=== PATIENT | female | born 1990 | race Caucasian/White ===

== ENCOUNTER 2019-12-04 00:26 | Inpatient (IN) | payer MEDICAID, OTHER ==
[~2019-12-04] VITALS: Ht 154.9 cm; Wt 56.6 kg
--- NOTE | 2019-12-04 00:40 | NUR ---
C/O GLEASON AND GENERALIZED PAIN, PT REPORTS SHE HAD SPINAL TAP ON THURSDAY AT [facility].
--- NOTE | 2019-12-04 00:44 | NUR ---
ERP AT BEDSIDE FOR EVAL.
[2019-12-04] MEDS ORDERED: DIPHENHYDRAMINE 50 MG/ML, 1ML IVPush ONE ×2 (01:00→14:30)
[2019-12-04] MEDS ORDERED: DIAZEPAM 5 MG/ML, 2ML IVPush ONE (01:00)
[2019-12-04] MEDS ORDERED: PROCHLORPERAZINE 5 MG/ML, 2ML IVPush ONE (01:00)
[2019-12-04] MEDS ORDERED: SODIUM CHLORIDE 0.9% 1,000ML IV ONE (01:00)
[2019-12-04] MEDS ORDERED: KETOROLAC 30 MG/1 ML IVPush ONE (01:00)
[2019-12-04 01:07] LABS: BASOPHILS # (AUTO) 0.05 x10^3/uL (0-0.1); BASOPHILS % (AUTO) 0 % (0-1); EOSINOPHILS # (AUTO) 0.05 x10^3/uL (0-0.4); EOSINOPHILS % (AUTO) 1 % (1-7); HCT (SEDRATE) 35.4 % (34.6-47.8); LYMPHOCYTES # (AUTO) 3.87 x10^3/uL (1-3.4); LYMPHOCYTES % (AUTO) 36 % (22-44); MD NO; MEAN CORPUSCULAR HEMOGLOBIN 30.3 pg (27.0-34.8); MEAN CORPUSCULAR HGB CONC 33.5 g/dL (32.4-35.8); MEAN CORPUSCULAR VOLUME 90.4 fL (80-100); MEAN PLATELET VOLUME 7.2 fL (7.4-10.4); MONOCYTES # (AUTO) 0.83 x10^3/uL (0.2-0.8); MONOCYTES % (AUTO) 8 % (2-9); NEUTROPHILS # (AUTO) 6.08 x10^3/uL (1.8-6.8); NEUTROPHILS % (AUTO) 56 % (42-75); PLATELET COUNT 455 x10^3/uL (130-400); RED BLOOD COUNT 3.92 x10^6/uL (3.82-5.3); RED CELL DISTRIBUTION WIDTH 13.8 % (9.6-15.2)
[2019-12-04] MEDS ORDERED: PROCHLORPERAZINE 5 MG/ML, 2ML ONE (01:07)
[2019-12-04] MEDS ORDERED: DIPHENHYDRAMINE 50 MG/ML, 1ML ONE (01:07)
[2019-12-04] MEDS ORDERED: DIAZEPAM 5 MG/ML, 2ML ONE (01:07)
[2019-12-04] MEDS ORDERED: KETOROLAC 30 MG/1 ML ONE (01:08)
[2019-12-04 01:19] LABS: ALANINE AMINOTRANSFERASE 16 U/L (12-78); ALBUMIN 2.9 g/dL (3.4-5.0); ANION GAP 7 mmol/L (5-15); CALCIUM 8.7 mg/dL (8.5-10.1); CHLORIDE 105 mmol/L (98-107); CREATININE 0.79 mg/dL (0.55-1.02)
[2019-12-04 01:24] LABS: ALKALINE PHOSPHATASE 112 U/L (45-117); BILIRUBIN,TOTAL 0.1 mg/dL (0.2-1.0); TOTAL PROTEIN 7.4 g/dL (6.4-8.2)
[2019-12-04] MEDS ORDERED: TIZA2CAP PO (01:38)
[2019-12-04] MEDS ORDERED: BCP (01:38)
--- NOTE | 2019-12-04 01:49 | NUR ---
PT SLEEPING IN NO ACUTE DISTRESS, RESPIRATIONS EVEN AND UNLABORED. SISTER AT BEDSIDE.
--- NOTE | 2019-12-04 02:13 | NUR ---
PT UP TO BR WITH SISTER'S ASSISTANCE.
[2019-12-04 02:31] LABS: MICROSCOPIC NOT IND
[2019-12-04 02:38] LABS: CULTURE INDICATED? NO
--- NOTE | 2019-12-04 03:00 | NUR ---
PT RESTING IN GURNEY IN NO ACUTE DISTRESS, RESPIRATIONS EVEN AND UNLABORED. SISTER AT BEDSIDE.
--- NOTE | 2019-12-04 03:52 | NUR ---
PT IN MRI.
--- NOTE | 2019-12-04 04:27 | NUR ---
PT BACK FROM MRI, GOT UP TO BR. VSS. SISTER AT BEDSIDE.
[2019-12-04] MEDS ORDERED: HYDROmorphone 1 MG/ML, 1ML INJ ONE (04:42)
[2019-12-04] MEDS ORDERED: ONDANSETRON 2MG/ML, 2ML ONE (04:42)
[2019-12-04] MEDS ORDERED: HYDROmorphone 1 MG/ML, 1ML INJ IV ONE (05:00)
[2019-12-04] MEDS ORDERED: LIDODERM 5% PATCH TD ONE ×2 (05:00→05:10)
[2019-12-04] MEDS ORDERED: ONDANSETRON 2MG/ML, 2ML IVPush ONE (05:00)
--- NOTE | 2019-12-04 05:43 | NUR ---
SLEEPING IN NO ACUTE DISTRESS, EVEN AND UNLABORED RESPIRATIONS. VSS. SAFETY PRECAUTIONS IN PLACE.
--- NOTE | 2019-12-04 06:47 | NUR ---
report received from bronson bauer.
[2019-12-04] MEDS ORDERED: TRAZODONE 50MG TABLET PO PRN (07:00)
[2019-12-04] MEDS ORDERED: IBUPROFEN 600 MG TABLET PO PRN (07:00)
[2019-12-04] MEDS ORDERED: ONDANSETRON 2MG/ML, 2ML IVPush PRN (07:00)
[2019-12-04] MEDS ORDERED: ONDANSETRON ODT 4 MG PO PRN (07:00)
[2019-12-04] MEDS ORDERED: MORPHINE SULFATE 4 MG/ML, 1ML IVPush PRN (07:00)
[2019-12-04] MEDS ORDERED: hydrALAzine 20 MG/ML, 1ML IVPush PRN (07:00)
[2019-12-04] MEDS ORDERED: SUMATRIPTAN 6MG/0.5ML SQ ONE ×2 (07:00→07:08)
--- NOTE | 2019-12-04 07:11 | NUR ---
medication ordered from pharmacy.
--- NOTE | 2019-12-04 07:15 | NUR ---
CALLED FOR REPORT X 1. RN WAS BUSY WITH PT CARE.
[2019-12-04] MEDS: GABAPENTIN 100 MG CAPSULE PO SCH ×4 (07:34→21:36)
--- NOTE | 2019-12-04 07:37 | NUR ---
pt medicated per emar. pt tolerated well.
--- NOTE | 2019-12-04 07:58 | NUR ---
report given to tran bauer. all questions answered.
[2019-12-04 08:25] VITALS: BP 122/84
[2019-12-04] MEDS: KETOROLAC 30 MG/1 ML IV PRN ×2 (08:57→19:53)
[2019-12-04] MEDS: TIZANIDINE 4MG TABLET PO SCH ×2 (08:57→15:00)
[2019-12-04] MEDS ORDERED: ACETAMINOPHEN 325 MG TABLET PO SCH (09:00)
[2019-12-04 10:17] LABS: AMPHETAMINE SCREEN, URINE Negative (Negative); BARBITURATE SCREEN, URINE Negative (Negative); BENZODIAZEPINE SCREEN, URINE Positive (Negative); CANNABINOID SCREEN, URINE Positive (Negative); COCAINE SCREEN, URINE Negative (Negative); METHADONE SCREEN, URINE Negative (Negative); OPIATE SCREEN, URINE Positive (Negative)
[2019-12-04] MEDS: METHYL SALICYLATE/MENTHOL CRM 85GM TP SCH ×3 (11:00→21:00)
[2019-12-04] MEDS: ASA/APAP/ CAFFEINE TABLET PO PRN (11:08)
[2019-12-04] MEDS: OXYcodone IR 5MG TABLET PO PRN ×3 (11:11→21:36)
[2019-12-04] MEDS: SUMATRIPTAN 50 MG TABLET PO PRN ×2 (12:42→19:53)
[2019-12-04 13:31] VITALS: BP 128/85
[2019-12-04] MEDS ORDERED: ACETAMINOPHEN 500 MG TABLET PO SCH (13:31)
[2019-12-04] MEDS: BACLOFEN 10 MG TABLET PO PRN (13:35)
[2019-12-04] MEDS ORDERED: BUTALB/APAP/CAFFEINE 50MG/325MG/40MG PO PRN (14:30)
[2019-12-04] MEDS: HYDROmorphone 2 MG/ML, 1ML IVPush PRN ×4 (14:34→22:54)
[2019-12-04] MEDS: DEXAMETHASONE INTENSOL 1 MG/ML ORAL SOL PO SCH (15:00)
[2019-12-04 20:21] VITALS: BP 133/91
[2019-12-05 01:10] VITALS: BP 120/78
[2019-12-05] MEDS: TIZANIDINE 4MG TABLET PO SCH ×3 (01:19→17:05)
[2019-12-05] MEDS: ASA/APAP/ CAFFEINE TABLET PO PRN (01:20)
[2019-12-05] MEDS: HYDROmorphone 2 MG/ML, 1ML IVPush PRN ×2 (03:14→08:23)
[2019-12-05] MEDS: BACLOFEN 10 MG TABLET PO PRN (04:33)
[2019-12-05 05:37] LABS: BASOPHILS % (AUTO) 0 % (0-1); EOSINOPHILS # (AUTO) 0.11 x10^3/uL (0-0.4); EOSINOPHILS % (AUTO) 1 % (1-7); LYMPHOCYTES # (AUTO) 2.15 x10^3/uL (1-3.4); LYMPHOCYTES % (AUTO) 20 % (22-44); MD NO; MEAN CORPUSCULAR HEMOGLOBIN 30.5 pg (27.0-34.8); MEAN CORPUSCULAR HGB CONC 33.4 g/dL (32.4-35.8); MEAN CORPUSCULAR VOLUME 91.2 fL (80-100); MEAN PLATELET VOLUME 7.9 fL (7.4-10.4); MONOCYTES # (AUTO) 0.56 x10^3/uL (0.2-0.8); MONOCYTES % (AUTO) 5 % (2-9); NEUTROPHILS # (AUTO) 8.09 x10^3/uL (1.8-6.8); NEUTROPHILS % (AUTO) 74 % (42-75); PLATELET COUNT 490 x10^3/uL (130-400); RED BLOOD COUNT 4.21 x10^6/uL (3.82-5.3); RED CELL DISTRIBUTION WIDTH 13.3 % (9.6-15.2)
[2019-12-05 05:39] LABS: ANION GAP 7 mmol/L (5-15); CHLORIDE 103 mmol/L (98-107); CREATININE 0.72 mg/dL (0.55-1.02)
[2019-12-05] MEDS: GABAPENTIN 100 MG CAPSULE PO SCH ×4 (05:53→22:00)
[2019-12-05] MEDS: OXYcodone IR 5MG TABLET PO PRN ×2 (05:54→23:36)
[2019-12-05] MEDS: METHYL SALICYLATE/MENTHOL CRM 85GM TP SCH ×4 (06:00→22:00)
[2019-12-05] MEDS: KETOROLAC 30 MG/1 ML IV PRN ×2 (06:33→17:04)
[2019-12-05 08:14] VITALS: BP 129/87
[2019-12-05] MEDS: DEXAMETHASONE INTENSOL 1 MG/ML ORAL SOL PO SCH (10:00)
[2019-12-05] MEDS ORDERED: PROCHLORPERAZINE 5 MG/ML, 2ML IVPush ONE (11:30)
[2019-12-05] MEDS ORDERED: DIPHENHYDRAMINE 50 MG/ML, 1ML IVPush ONE (11:30)
[2019-12-05 14:18] VITALS: BP 111/71
[2019-12-05] MEDS ORDERED: HYDROmorphone 2MG TABLET ONE ×2 (14:39→19:50)
[2019-12-05] MEDS: HYDROmorphone 4MG TABLET PO PRN ×2 (14:48→21:03)
[2019-12-05 19:19] VITALS: BP 125/81
[2019-12-06] MEDS: SUMATRIPTAN 50 MG TABLET PO PRN (00:56)
[2019-12-06 02:02] VITALS: BP 156/97
[2019-12-06] MEDS: KETOROLAC 30 MG/1 ML IV PRN (02:26)
[2019-12-06] MEDS: TIZANIDINE 4MG TABLET PO SCH ×2 (02:26→10:27)
[2019-12-06] MEDS: HYDROmorphone 2MG TABLET PO PRN ×2 (03:55→08:57)
[2019-12-06] MEDS: OXYcodone IR 5MG TABLET PO PRN (06:07)
[2019-12-06] MEDS: GABAPENTIN 100 MG CAPSULE PO SCH ×2 (06:07→10:27)
[2019-12-06 07:49] VITALS: BP 133/92
[2019-12-06] MEDS ORDERED: PROCHLORPERAZINE 5 MG/ML, 2ML ONE (08:40)
[2019-12-06] MEDS ORDERED: SODIUM CHLORIDE 0.9% 1,000 ML IV SCH (09:00)
[2019-12-06] MEDS ORDERED: PROCHLORPERAZINE 5 MG/ML, 2ML IV PRN ×2 (09:00→11:00)
[2019-12-06] MEDS ORDERED: SENNA/DOCUSATE TABLET PO PRN (09:00)
[2019-12-06] MEDS: METHYL SALICYLATE/MENTHOL CRM 85GM TP SCH ×2 (10:28→11:00)
[2019-12-06] MEDS: DEXAMETHASONE INTENSOL 1 MG/ML ORAL SOL PO SCH (10:28)
[2019-12-06] MEDS ORDERED: DIPHENHYDRAMINE 50 MG/ML, 1ML IVPush PRN (11:00)
[2019-12-06] MEDS ORDERED: METOCLOPRAMIDE 5 MG/ML, 2ML IVPush PRN (11:00)
[2019-12-06] MEDS ORDERED: HYDROmorphone 2 MG/ML, 1ML IV ONE (11:30)
[2019-12-06] MEDS ORDERED: HYDROmorphone 2MG TABLET PO PRN (12:00)
[2019-12-06 13:20] VITALS: BP 137/96
[2019-12-06] MEDS ORDERED: PROC5TAB40 PO (15:29)
[2019-12-06] MEDS ORDERED: PRED10TA PO (15:30)
== END 2019-12-06 17:50 | disposition home or self-care (01) | DRG 103 ==
LOC: ED 00:53 → EDIP 05:39 → INTOOBSV 05:39 → OBSVTOIN 05:39 → 3N 08:25
PROVIDERS: ADMIT Hospitalist; ATTEND Hospitalist
DX: G97.1 Other reaction to spinal and lumbar puncture (principal); D17.9 Benign lipomatous neoplasm, unspecified; D72.829 Elevated white blood cell count, unspecified; F12.90 Cannabis use, unspecified, uncomplicated; G43.909 Migraine, unspecified, not intractable, without status migrainosus; G89.4 Chronic pain syndrome; M41.9 Scoliosis, unspecified; M54.9 Dorsalgia, unspecified; G44.209 Tension-type headache, unspecified, not intractable; R56.9 Unspecified convulsions; Z79.82 Long term (current) use of aspirin; Z82.49 Family history of ischemic heart disease and other diseases of the circulatory system; Y84.4 Aspiration of fluid as the cause of abnormal reaction of the patient, or of later complication, without mention of misadventure at the time of the procedure; Z90.49 Acquired absence of other specified parts of digestive tract; Z90.89 Acquired absence of other organs; D47.3 Essential (hemorrhagic) thrombocythemia
CPT/HCPCS: 36415; 70546; 70551; 72148; 80048; 80053; 80307; 81003; 83690; 84443; 84702; 85025; 85651; 86140; 93880; J1170; J1885; J2405; J3360; Q0162; G0378; J0780; J1200; J2270; J3030; J7030

== ENCOUNTER 2019-12-08 18:35 | Emergency (ER) | payer MEDICAID ==
[~2019-12-08] VITALS: Ht 154.9 cm; Wt 53.7 kg
[~2019-12-08 18:35] MED LIST: BCP; PRED10TA PO; PROC5TAB40 PO; TIZA2CAP PO
[2019-12-08] MEDS ORDERED: KETOROLAC 30 MG/1 ML ONE (19:27)
[2019-12-08] MEDS ORDERED: DIPHENHYDRAMINE 50 MG/ML, 1ML ONE (19:27)
[2019-12-08] MEDS ORDERED: PROCHLORPERAZINE 5 MG/ML, 2ML ONE (19:27)
[2019-12-08] MEDS ORDERED: SODIUM CHLORIDE FLUSH 10ML SYR IVF ONE (19:30)
[2019-12-08] MEDS ORDERED: PROCHLORPERAZINE 5 MG/ML, 2ML IVPush ONE (19:30)
[2019-12-08] MEDS ORDERED: SODIUM CHLORIDE 0.9% 1,000ML IVBOLUS ONE (19:30)
[2019-12-08] MEDS ORDERED: DIPHENHYDRAMINE 50 MG/ML, 1ML IVPush ONE (19:30)
[2019-12-08] MEDS ORDERED: KETOROLAC 30 MG/1 ML IVPush ONE (19:30)
[2019-12-08] MEDS ORDERED: KETAMINE 10 MG/ML, 20ML IV ONE (21:00)
[2019-12-08] MEDS ORDERED: KETAMINE 10 MG/ML, 20ML ONE (21:09)
--- NOTE | 2019-12-08 22:17 | NUR ---
Pt found sleeping in room. Pt reports no change in pain after Ketamine. Pt's SBP has decreased by 20. Pt's HR 72 while sleeping.
[2019-12-08 22:34] VITALS: BP 124/61
== END 2019-12-08 22:37 | disposition home or self-care (01) ==
LOC: ED 19:01
DX: G43.909 Migraine, unspecified, not intractable, without status migrainosus (principal); R94.31 Abnormal electrocardiogram [ECG] [EKG]
CPT/HCPCS: 93005; 96374; 96375; 99284; J0780; J1200; J1885; J7030

== ENCOUNTER 2020-03-28 17:55 | Emergency (ER) | payer MEDICAID ==
[~2020-03-28] VITALS: Ht 154.9 cm; Wt 54.3 kg
[2020-03-28] MEDS ORDERED: KETOROLAC 30 MG/1 ML ONE (19:41)
[2020-03-28] MEDS ORDERED: ONDANSETRON 2MG/ML, 2ML ONE (19:42)
[2020-03-28] MEDS ORDERED: MORPHINE SULFATE 4 MG/ML, 1ML ONE (19:42)
[2020-03-28 19:44] LABS: BASOPHILS # (AUTO) 0.04 x10^3/uL (0-0.1); BASOPHILS % (AUTO) 0 % (0-1); EOSINOPHILS # (AUTO) 0.06 x10^3/uL (0-0.4); EOSINOPHILS % (AUTO) 1 % (1-7); LYMPHOCYTES % (AUTO) 36 % (22-44); MD NO; MEAN CORPUSCULAR HEMOGLOBIN 30.7 pg (27.0-34.8); MEAN CORPUSCULAR HGB CONC 33.5 g/dL (32.4-35.8); MEAN CORPUSCULAR VOLUME 91.8 fL (80-100); MEAN PLATELET VOLUME 8.2 fL (7.4-10.4); MONOCYTES # (AUTO) 0.44 x10^3/uL (0.2-0.8); MONOCYTES % (AUTO) 5 % (2-9); NEUTROPHILS # (AUTO) 5.79 x10^3/uL (1.8-6.8); NEUTROPHILS % (AUTO) 59 % (42-75); PLATELET COUNT 305 x10^3/uL (130-400); RED CELL DISTRIBUTION WIDTH 13.6 % (9.6-15.2)
[2020-03-28 19:50] LABS: MICROSCOPIC AUTO
[2020-03-28 19:51] LABS: ALANINE AMINOTRANSFERASE 17 U/L (12-78); ALBUMIN 3.8 g/dL (3.4-5.0); ANION GAP 8 mmol/L (5-15); CALCIUM 9.4 mg/dL (8.5-10.1); CHLORIDE 105 mmol/L (98-107); CREATININE 0.92 mg/dL (0.55-1.02)
[2020-03-28 19:55] LABS: ALKALINE PHOSPHATASE 62 U/L (45-117); BILIRUBIN,TOTAL 0.3 mg/dL (0.2-1.0); TOTAL PROTEIN 7.6 g/dL (6.4-8.2)
--- NOTE | 2020-03-28 19:57 | NUR ---
TASK RN: PIV PLACED THEN MEDICATED PER EMAR
[2020-03-28] MEDS ORDERED: ONDANSETRON 2MG/ML, 2ML IVPush ONE (20:00)
[2020-03-28] MEDS ORDERED: MORPHINE SULFATE 4 MG/ML, 1ML IVPush PRN (20:00)
[2020-03-28] MEDS ORDERED: SODIUM CHLORIDE FLUSH 10ML SYR IVF ONE (20:00)
[2020-03-28] MEDS ORDERED: KETOROLAC 30 MG/1 ML IVPush ONE (20:00)
--- NOTE | 2020-03-28 20:02 | NUR ---
RECEIVED REPORT FROM ANNE AMADOR. ERP TO BEDSIDE.
--- NOTE | 2020-03-28 20:22 | NUR ---
PT TO IMAGING.
[2020-03-28] MEDS ORDERED: HYDROmorphone 1 MG/ML, 1ML INJ ONE (20:32)
[2020-03-28] MEDS: HYDROmorphone 2 MG/ML, 1ML IVPush PRN ×2 (20:34→21:54)
[2020-03-28] MEDS ORDERED: HYDROmorphone 2 MG/ML, 1ML ONE (21:49)
--- NOTE | 2020-03-28 21:55 | NUR ---
ADMINISTERED PAIN MEDS PER EMAR. PATIENT IN 03/26 PAIN, PATIENT ON MONITORS, NO OTHER ISSUES. PRIMARY RN UPDATED.
[2020-03-28 21:59] VITALS: BP 132/81
== END 2020-03-28 22:11 | disposition home or self-care (01) ==
LOC: ED 20:20
DX: R31.29 Other microscopic hematuria (principal); R10.32 Left lower quadrant pain; R30.0 Dysuria; R11.2 Nausea with vomiting, unspecified; G43.909 Migraine, unspecified, not intractable, without status migrainosus; Z87.442 Personal history of urinary calculi
CPT/HCPCS: 36415; 74176; 76770; 80053; 81001; 84703; 85025; 96374; 96375; 96376; 99285; J1170; J1885; J2270; J2405

== ENCOUNTER 2020-05-16 17:02 | Emergency (ER) | payer MEDICAID ==
[~2020-05-16] VITALS: Ht 154.9 cm; Wt 56.2 kg
--- NOTE | 2020-05-16 18:20 | NUR ---
TECHNOLOGY APPLICATIONS ENGINEER: PT TO ROOM FROM LOBBY, VIA W/C
[2020-05-16] MEDS ORDERED: DIPHENHYDRAMINE 50 MG/ML, 1ML ONE (18:30)
[2020-05-16] MEDS ORDERED: KETOROLAC 30 MG/1 ML IVPush ONE (18:30)
[2020-05-16] MEDS ORDERED: PROCHLORPERAZINE 5 MG/ML, 2ML ONE (18:30)
[2020-05-16] MEDS ORDERED: SODIUM CHLORIDE FLUSH 10ML SYR IVF ONE (18:30)
[2020-05-16] MEDS ORDERED: DIPHENHYDRAMINE 50 MG/ML, 1ML IVPush ONE (18:30)
[2020-05-16] MEDS ORDERED: PROCHLORPERAZINE 5 MG/ML, 2ML IVPush ONE (18:30)
[2020-05-16] MEDS ORDERED: SODIUM CHLORIDE 0.9% 1,000ML IVBOLUS ONE (18:30)
--- NOTE | 2020-05-16 18:30 | NUR ---
BREAK RN: PIV PLACED, PATIENT MEDICATED PER EMAR.
[2020-05-16] MEDS ORDERED: KETOROLAC 30 MG/1 ML ONE (18:31)
--- NOTE | 2020-05-16 18:53 | NUR ---
ED provider at bedside
[2020-05-16] MEDS ORDERED: LORazepam 2 MG/ML, 1ML IVPush ONE (19:00)
[2020-05-16 19:28] LABS: ALANINE AMINOTRANSFERASE 11 U/L (12-78); ALBUMIN 2.5 g/dL (3.4-5.0); ANION GAP 6 mmol/L (5-15); CALCIUM 7.5 mg/dL (8.5-10.1); CHLORIDE 113 mmol/L (98-107); CREATININE 0.78 mg/dL (0.55-1.02)
[2020-05-16] MEDS ORDERED: LORazepam 2 MG/ML, 1ML ONE (19:29)
[2020-05-16 19:30] LABS: BASOPHILS # (AUTO) 0.05 x10^3/uL (0-0.1); BASOPHILS % (AUTO) 1 % (0-1); EOSINOPHILS # (AUTO) 0.03 x10^3/uL (0-0.4); EOSINOPHILS % (AUTO) 0 % (1-7); LYMPHOCYTES # (AUTO) 3.05 x10^3/uL (1-3.4); LYMPHOCYTES % (AUTO) 36 % (22-44); MD NO; MEAN CORPUSCULAR HEMOGLOBIN 30.7 pg (27.0-34.8); MEAN CORPUSCULAR HGB CONC 33.5 g/dL (32.4-35.8); MONOCYTES # (AUTO) 0.51 x10^3/uL (0.2-0.8); MONOCYTES % (AUTO) 6 % (2-9); NEUTROPHILS # (AUTO) 4.88 x10^3/uL (1.8-6.8); NEUTROPHILS % (AUTO) 57 % (42-75); PLATELET COUNT 320 x10^3/uL (130-400); RED BLOOD COUNT 4.11 x10^6/uL (3.82-5.3); RED CELL DISTRIBUTION WIDTH 13.5 % (9.6-15.2)
[2020-05-16 19:32] LABS: ALKALINE PHOSPHATASE 39 U/L (45-117); BILIRUBIN,TOTAL 0.2 mg/dL (0.2-1.0)
--- NOTE | 2020-05-16 20:10 | NUR ---
Pt states no effect from meds, still c/o 05/26 GLEASON. Provider aware
[2020-05-16] MEDS ORDERED: HYDROmorphone 1 MG/ML, 1ML INJ ONE ×2 (20:20→22:49)
[2020-05-16] MEDS: HYDROmorphone 2 MG/ML, 1ML IVPush PRN ×2 (20:25→23:05)
[2020-05-16] MEDS ORDERED: SUMATRIPTAN 6MG/0.5ML SQ ONE ×2 (21:00→21:11)
--- NOTE | 2020-05-16 22:46 | NUR ---
Hospitalist at bedside
--- NOTE | 2020-05-16 22:58 | NUR ---
MRI screening form sent
[2020-05-16] MEDS ORDERED: HYDROmorphone 1 MG/ML, 1ML INJ IVPush PRN (23:00)
[2020-05-16] MEDS ORDERED: GADOTERATE 7.5 MMOL/15 ML VIAL ONE (23:37)
--- NOTE | 2020-05-16 23:40 | NUR ---
Traveled to MRI with pv design and installation technician
--- NOTE | 2020-05-17 00:58 | NUR ---
TASK RN: PT IN [facility] AT THIS TIME ASLEEP WITH SALIMAN. PT VSS AND UPDATED IN EMR AT THIS TIME. PT HAS CALL LIGHT WITHIN REACH.
[2020-05-17] MEDS ORDERED: HYDROmorphone 1 MG/ML, 1ML INJ ONE (01:42)
[2020-05-17] MEDS ORDERED: DEXAMETHASONE 4 MG TABLET ONE (02:15)
[2020-05-17] MEDS ORDERED: DEXAMETHASONE 4 MG TABLET PO ONE (02:30)
[2020-05-17 02:33] VITALS: BP 133/77
--- NOTE | 2020-05-17 02:35 | NUR ---
D/c instructions and f/u POC discussed with pt. Verbalizes understanding. in lobby to pick pt up. Ambulating independently, steady gait. VSS. IV removed, catheter in tact upon removal
== END 2020-05-17 02:36 | disposition home or self-care (01) ==
LOC: ED 19:08
DX: G43.909 Migraine, unspecified, not intractable, without status migrainosus (principal); D17.9 Benign lipomatous neoplasm, unspecified; R11.2 Nausea with vomiting, unspecified; K64.5 Perianal venous thrombosis
CPT/HCPCS: 36415; 70546; 70553; 80053; 83690; 84703; 85025; 96372; 96374; 96375; 96376; 99285; A9575; J0780; J1170; J1200; J1885; J2060; J3030; J7030